=== PATIENT | male | born 1950 | race Caucasian/White ===

== ENCOUNTER 2016-08-05 17:17 | Emergency (ER) | payer OTHER ==
[2016-08-05 17:24] VITALS: BP 164/85; BMI 34.2
--- NOTE | 2016-08-05 17:26 | DR.GENAD ---
HPI - PCP Primary Care Physician: [email or web address] - Complaint/Symptoms Chief Complaint:: abdomen pain for the last two months has got worse since tuesday pt cant have a bowle movement - Nurses notes reviewed Nurses Notes Review: Yes - Source History Provided: Patient - Mode of Arrival Mode of Arrival: Ambulatory - Timing Onset of Chief Complaint: 07/08/16 Came on: Gradually - Duration Duration: Intermittent How lon Duration: Days - Location Location: ABDOMIN - Severity Severity: Moderate - Modifying Factors Worsens:: LAST 3 DAYS - Associated Signs and Symptoms Associated Signs and Symptoms: RUQ PAIN - Other History Other History: HX COLON CANCER PMH - PMH Past Medical History: Yes Past Medical History: Gout Past Surgical History: Yes Past Surgical History Comment: colon cancer 2000 tumor removed, ball surgery, eye - Family History History of Family Medical Conditions: Yes Family Medical History: Cancer, Hypertension - Social History Does patient currently use any type of tobacco product: Yes Have you used tobacco products in the last 12 months: Yes Type of Tobacco Use: Cigars How many years tobacco product used: 1 Does any household member use tobacco: No Alcohol Use: Occasionally Do you use any recreational Drugs:: No Lives With: Spouse Lives Where: Home - infectious screening In the last 2 months have you had wt loss of >10#?: NO Have you had fever, night sweats or hemotysis?: No Have you traveled outside the country in the last 6 months?: No Isolation: Standard ROS - Review of Systems Constitutional: No Symptoms Reported Eyes: No Symptoms Reported ENTM: No Symptoms Reported Respiratoy: No Symptoms Reported Cardiovascular: No Symptoms Reported Gastrointestinal/Abdominal: Abdominal Pain, Constipation Genitourinary: No Symptoms Reported Neurological: No Symptoms Reported Musculoskeletal: No Symptoms Reported Integumentary: No Symptoms Reported Hematologic/Lymphatic: No Symptoms Reported Endocrine: No Symptoms Reported Psychiatric: No Symptoms Reported PE - Vital Signs Vitals: Temperature 98.8 F Pulse Rate 69 Respiratory Rate 18 Blood Pressure 164/85 O2 Sat by Pulse Oximetry 100 - General Limitations: No Limitations General Appearance: Alert - Head Head Exam: Normal Inspection - Eyes Eye exam: PERRL, EOMI. negative: Scleral Icterus, Conjunctival Injection - ENT ENT Exam: Normal Exam External Ear Exam: Normal External Inspection - Neck Neck Exam: Normal Inspection, Full ROM, Trachea Midline - Respiratory Respiratory Exam: negative: Accessory Muscle Use, Respiratory Distress - Cardiovascular Cardiovascular Exam: Regular Rate - Abdominal Exam Abdominal Exam: Normal Inspection, Soft, Tenderness (MILD ruq). negative: Normal Bowel Sounds (DECREASED BOWEL SOUNDS), Distention, Guarding Abdominal Tenderness: RUQ - Extremities Extremities Exam: Normal Inspection, Full ROM - Neurologic Neurological Exam: Alert, Oriented X3, CN II-XII Intact - Psychiatric Psychiatric Exam: Normal Affect - Skin Skin Exam: Intact, Normal Color Course - Consultation Called: 18:00 Call Returned: 18:08 Consultation Comments: CASE DISCUSSED WITH dr. Nunez ADMIT IVF, POTASSIUM - Diagnosis Discharge Problem: Hypokalemia due to loss of potassium Diarrhea Qualifiers: Diarrhea type: unspecified type Qualified Code(s): R19.7 - Diarrhea, unspecified - Discharge Plan Condition: Stable - Follow ups/Referrals Follow ups/Referrals: Ubaldo Castillo [Primary Care Provider] - 3 days - Instructions
[2016-08-05 18:26] LABS: BILIRUBIN,URINE NEGATIVE (NEGATIVE); BLOOD/HEMOGLOBIN,URINE NEGATIVE (NEGATIVE); GLUCOSE, URINE NEGATIVE (NEGATIVE); KETONES,URINE NEGATIVE (NEGATIVE); LEUKOCYTE ESTERASE ,URINE NEGATIVE (NEGATIVE); NITRITES,URINE NEGATIVE (NEGATIVE); PROTEIN,URINE NEGATIVE (NEGATIVE); UROBILINOGEN,URINE NORMAL (NORMAL)
[2016-08-05 18:28] LABS: BASOPHILS % (AUTO) 0.3 % (0.2-1.0); EOSINOPHILS # (AUTO) 0.1 x10^3/uL (0.0-0.2); EOSINOPHILS % (AUTO) 0.9 % (0.9-2.9); HEMATOCRIT 45.6 % (42.0-54.0); HEMOGLOBIN 15.6 g/dL (13.5-18.0); LYMPHOCYTES # (AUTO) 3.8 X10^3/uL (1.3-2.9); LYMPHOCYTES % (AUTO) 30.9 % (21.0-51.0); MEAN CORPUSCULAR HEMOGLOBIN 32.1 pg (27.0-34.0); MEAN CORPUSCULAR HGB CONC 34.2 g/dL (33.0-35.0); MEAN CORPUSCULAR VOLUME 93.8 fL (80.0-100.0); MONOCYTES # (AUTO) 0.9 x10^3/uL (0.3-0.8); MONOCYTES % (AUTO) 6.9 % (0.0-13.0); NEUTROPHILS # (AUTO) 7.6 x10^3/uL (2.2-4.8); PLATELET COUNT 151 X10^3/uL (150.0-450.0); RED BLOOD COUNT 4.86 X10^6/uL (4.7-6.0); RED CELL DISTRIBUTION WIDTH 13.4 % (11.6-16.5); WHITE BLOOD COUNT 12.5 X10^3/uL (3.6-10.0)
[2016-08-05 18:34] LABS: APPEARANCE,URINE CLEAR (CLEAR); BACTERIA,URINE NEGATIVE /HPF (NEGATIVE); COLOR,URINE YELLOW (YELLOW); RBC,URINE NEGATIVE /HPF (NEGATIVE); SQUAMOUS EPITHELIAL CELL,UR NEGATIVE /HPF (NEGATIVE)
[2016-08-05 18:36] LABS: ALANINE AMINOTRANSFERASE 34 Units/L (12-78); ALBUMIN 3.7 g/dL (3.4-5.0); ALKALINE PHOSPHATASE 88 Units/L (46-116); AMYLASE 41 Units/L (25-115); ASPARTATE AMINO TRANSFERASE 19 Units/L (15-37); BLOOD UREA NITROGEN 15 mg/dL (7-18); CARBON DIOXIDE 31.1 mmol/L (21-32); CHLORIDE 105 mmol/L (98-107); CREATININE 1.05 mg/dL (0.70-1.30); GLUCOSE 105 mg/dL (65-99); LIPASE 175 Units/L (73-393); SODIUM 144 mmol/L (136-145); TOTAL PROTEIN 7.6 g/dL (6.4-8.2); eGFR BLACK RACES > 60 (>60); eGFR NON BLACK RACES > 60 (>60)
[2016-08-05] MEDS ORDERED: NS 100 ML IV 100 ML IV ONE (18:43)
--- NOTE | 2016-08-05 19:52 | CT ---
HISTORY: Right upper quadrant pain and constipation for 3 days Study: CT abdomen and pelvis with IV contrast Comparison: None Technique: Multiple axial images of the abdomen and pelvis were obtained from the lung bases to the pubic symph ysis with the administration of IV contrast. Sagittal and coronal reformations were provided. Findings: The visualized portions of the lung bases are unremarkable. The liver, spleen, pancreas, kidneys, a nd adrenal glands are unremarkable in their CT appearance. There are numerous cholesterol gallstones in a nondistended gallbladder. There is no biliary dilatation.. No significant mesenteric lymphade nopathy or stranding can be observed. No free fluid or free air is seen within the abdomen. The ap pendix is normal. No bowel wall thickening or bowel dilatation is present. There are sutures for an astomosis in the proximal sigmoid colon.. The urinary bladder is grossly unremarkable. The bony str uctures are grossly intact. IMPRESSION: 1. Cholelithiasis Reported By:
[2016-08-05] MEDS ORDERED: ZOFRAN TAB 4 MG PO ONE (20:07)
[2016-08-05] MEDS ORDERED: NORCO 5/325 MG TAB PO ONE (20:07)
[2016-08-05] MEDS ORDERED: NORCO 5/325 MG TAB ONE (20:14)
[2016-08-05] MEDS ORDERED: ZOFRAN TAB 4 MG ONE (20:14)
== END 2016-08-05 20:21 | disposition home or self-care (01) ==
LOC: ER 17:27
DX: E87.6 Hypokalemia (principal); R19.7 Diarrhea, unspecified; K80.80 Other cholelithiasis without obstruction
CPT/HCPCS: 36415; 74177; 80053; 81001; 82150; 83690; 85025; 96365; 99283; A4216; A4222; S0181

== ENCOUNTER 2016-08-10 09:08 | Observation (INO) | payer OTHER ==
[2016-08-10] MEDS ORDERED: NS 1000 ML 1,000 ML IV ONE (09:50)
[2016-08-10] MEDS: PROTONIX INJ 40 MG VIAL IVP SCH (10:13)
[2016-08-10] MEDS: LEVAQUIN PREMIX IV 750 MG 750 MG/150 ML BAG IV SCH (10:14)
[2016-08-10] MEDS: PEPCID 20 MG IV PREMIX* 20 MG/50 ML BAG IV SCH ×2 (10:14→20:29)
[2016-08-10 10:31] LABS: BASOPHILS # (AUTO) 0.1 X10^3/uL (0.0-0.1); BASOPHILS % (AUTO) 0.9 % (0.2-1.0); EOSINOPHILS # (AUTO) 0.2 x10^3/uL (0.0-0.2); EOSINOPHILS % (AUTO) 2.3 % (0.9-2.9); HEMATOCRIT 45.2 % (42.0-54.0); HEMOGLOBIN 15.6 g/dL (13.5-18.0); LYMPHOCYTES # (AUTO) 1.5 X10^3/uL (1.3-2.9); LYMPHOCYTES % (AUTO) 17.1 % (21.0-51.0); MEAN CORPUSCULAR HEMOGLOBIN 32.4 pg (27.0-34.0); MEAN CORPUSCULAR HGB CONC 34.5 g/dL (33.0-35.0); MEAN CORPUSCULAR VOLUME 93.9 fL (80.0-100.0); MEAN PLATELET VOLUME 9.2 fL (7.4-11.0); MONOCYTES # (AUTO) 1.2 x10^3/uL (0.3-0.8); MONOCYTES % (AUTO) 13.7 % (0.0-13.0); NEUTROPHILS # (AUTO) 5.8 x10^3/uL (2.2-4.8); PLATELET COUNT 111 X10^3/uL (150.0-450.0); RED BLOOD COUNT 4.81 X10^6/uL (4.7-6.0); RED CELL DISTRIBUTION WIDTH 13.4 % (11.6-16.5); WHITE BLOOD COUNT 8.8 X10^3/uL (3.6-10.0)
[2016-08-10 10:55] LABS: BILIRUBIN,URINE NEGATIVE (NEGATIVE); BLOOD/HEMOGLOBIN,URINE 2+ (NEGATIVE); GLUCOSE, URINE NEGATIVE (NEGATIVE); KETONES,URINE NEGATIVE (NEGATIVE); LEUKOCYTE ESTERASE ,URINE NEGATIVE (NEGATIVE); NITRITES,URINE NEGATIVE (NEGATIVE); PROTEIN,URINE NEGATIVE (NEGATIVE); UROBILINOGEN,URINE NORMAL (NORMAL)
[2016-08-10 11:05] VITALS: BMI 34.5
[2016-08-10 11:15] LABS: APPEARANCE,URINE CLEAR (CLEAR); BACTERIA,URINE NEGATIVE /HPF (NEGATIVE); COLOR,URINE YELLOW (YELLOW); RBC,URINE 0-5 /HPF (NEGATIVE); SQUAMOUS EPITHELIAL CELL,UR RARE /HPF (NEGATIVE)
[2016-08-10 11:19] LABS: ALANINE AMINOTRANSFERASE 27 Units/L (12-78); ALBUMIN 3.5 g/dL (3.4-5.0); ALKALINE PHOSPHATASE 79 Units/L (46-116); ASPARTATE AMINO TRANSFERASE 22 Units/L (15-37); BLOOD UREA NITROGEN 13 mg/dL (7-18); CALCIUM 8.9 mg/dL (8.5-10.1); CARBON DIOXIDE 30.9 mmol/L (21-32); CHLORIDE 104 mmol/L (98-107); COR NA(FOR HYPERGLY) 141 mmol/L (136-145); CREATININE 1.22 mg/dL (0.70-1.30); GLUCOSE 113 mg/dL (65-99); SODIUM 141 mmol/L (136-145); TOTAL PROTEIN 7.6 g/dL (6.4-8.2); eGFR BLACK RACES > 60 (>60); eGFR NON BLACK RACES > 60 (>60)
[2016-08-10] MEDS: NS 1000 ML 1,000 ML IV SCH ×3 (13:51→22:26)
--- NOTE | 2016-08-10 16:44 | US ---
Limited abdominal ultrasound Indication: Abdominal pain, cholelithiasis Comparison: CT abdomen and pelvis 08/05/2016 Findings: There are technical limitations of the study related to superimposed patient bowel gas. Th ere are multiple layering gallstones within the gallbladder. No significant gallbladder distention, wall thickening, or pericholecystic fluid is identified. The visualized liver, right kidney, and welch creas were unremarkable. Impression: Limited study as above, demonstrating cholelithiasis, without evidence for acute cholecystitis. Reported By:
[2016-08-10] MEDS ORDERED: MORPHINE SULFATE INJ 2 MG IVP PRN (17:32)
[2016-08-10] MEDS ORDERED: NS 100 ML IV 100 ML IV ONE (18:51)
--- NOTE | 2016-08-10 20:22 | CT ---
CT OF THE ABDOMEN AND PELVIS WITH CONTRAST HISTORY: Abdominal pain. History of gallstones. Comparison: 08/05/2016 Technique: Multiple axial images of the abdomen and pelvis were obtained from the lung bases to the pubic symph ysis follow the administration of IV contrast as well as oral contrast. Dose reduction techniques i ncluding Automated Exposure Control (AEC) and adjustment of mA and kV were utlized. Findings: The heart is normal in size. There is no pericardial effusion. Lung bases are clear without focal co nsolidation, pleural effusion or pneumothorax. Liver and spleen are normal in size, enhancement characteristics and contour. No focal lesions. The portal vein is patent. No ductal dilitation. Multiple gallstones present. No pericholecystic fluid o r gallbladder wall thickening.. The pancreas is unremarkable. Adrenal glands are normal. Kidneys enh ance symmetrically without hydronephrosis or nephrolithiasis. No bowel obstruction or inflammation. Normal appendix. No abnormal appearing mesenteric or retroperi toneal lymph nodes. No free fluid or fluid collections. The bladder is normal in appearance. Prostate is normal in size.. No free fluid or abnormal pelvic l ymph nodes. No aggressive osseous lesions. IMPRESSION: 1. No source of patient's abdominal pain is identified. 2. Cholelithiasis without other signs of cholecystitis. Reported By:
[2016-08-10] MEDS ORDERED: AMBIEN PO PRN (21:12)
[2016-08-11] MEDS: NS 1000 ML 1,000 ML IV SCH ×3 (06:10→19:30)
[2016-08-11 06:18] LABS: ALANINE AMINOTRANSFERASE 24 Units/L (12-78); ALBUMIN 3.2 g/dL (3.4-5.0); ALKALINE PHOSPHATASE 73 Units/L (46-116); ASPARTATE AMINO TRANSFERASE 20 Units/L (15-37); BLOOD UREA NITROGEN 10 mg/dL (7-18); CALCIUM 8.4 mg/dL (8.5-10.1); CARBON DIOXIDE 27.7 mmol/L (21-32); CHLORIDE 104 mmol/L (98-107); GLUCOSE 106 mg/dL (65-99); SODIUM 141 mmol/L (136-145); eGFR BLACK RACES > 60 (>60); eGFR NON BLACK RACES > 60 (>60)
[2016-08-11 06:36] LABS: BASOPHILS # (AUTO) 0.1 X10^3/uL (0.0-0.1); BASOPHILS % (AUTO) 0.9 % (0.2-1.0); EOSINOPHILS # (AUTO) 0.1 x10^3/uL (0.0-0.2); EOSINOPHILS % (AUTO) 1.5 % (0.9-2.9); HEMATOCRIT 42.5 % (42.0-54.0); HEMOGLOBIN 14.7 g/dL (13.5-18.0); LYMPHOCYTES # (AUTO) 1.6 X10^3/uL (1.3-2.9); LYMPHOCYTES % (AUTO) 24.3 % (21.0-51.0); MEAN CORPUSCULAR HEMOGLOBIN 32.2 pg (27.0-34.0); MEAN CORPUSCULAR HGB CONC 34.5 g/dL (33.0-35.0); MEAN CORPUSCULAR VOLUME 93.3 fL (80.0-100.0); MEAN PLATELET VOLUME 9.6 fL (7.4-11.0); MONOCYTES # (AUTO) 1.1 x10^3/uL (0.3-0.8); MONOCYTES % (AUTO) 17.3 % (0.0-13.0); NEUTROPHILS # (AUTO) 3.6 x10^3/uL (2.2-4.8); PLATELET COUNT 110 X10^3/uL (150.0-450.0); RED BLOOD COUNT 4.56 X10^6/uL (4.7-6.0); RED CELL DISTRIBUTION WIDTH 13.2 % (11.6-16.5); WHITE BLOOD COUNT 6.4 X10^3/uL (3.6-10.0)
[2016-08-11] MEDS ORDERED: ZOFRAN INJ 4 MG VIAL IVP PRN ×2 (10:19→16:31)
--- NOTE | 2016-08-11 10:19 | DR.H&P ---
H&P - History & Physical for Day of: H&P Date: 08/10/16 - Chief Complaint Chief Complaint: ABDOMINAL PAIN, NAUSEA AND VOMITING - Allergies Allergies/Adverse Reactions: Allergies Allergy/AdvReac Type Severity Reaction Status Date / Time No Known Drug Allergy Allergy Verified 08/10/16 08:34 - History of Present Illness History of Present Illness: THIS IS A 66 YEAR OLD MALE, WHO IS A PATIENT OF OURS. HE IS DIRECT ADMITTED TODAY FOR SEVERE ABDOMINAL PAIN ALONG WITH NAUSEA AND VOMITING. PATIENT WAS SEEN IN THE EMERGENCY ROOM ON 08/05/16 FOR SIMILAR COMPLAINTS, ALTHOUGH; TODAY PAIN IS MUCH WORSE. PATIENT REPORTS PAIN IS SEVERE AFTER MEALS AND HE STATES HE HASN'T EATEN ANYTHING IN 4 DAYS. HE ALSO REPORTS NO BOWEL MOVEMENT IN 4 DAYS. HE IS NOTED WITH SEVERE ABDOMINAL TENDERNESS TO RIGHT QUADRANT. A CT OF ABD/PELVIS WAS OBTAINED WHILE IN ER AND REPORTED CHOLELITHIASIS. PATIENT RATES ABDOMINAL PAIN A 6 ON A 1-TO-10 PAIN SCALE. LABS OBTAINED ON ARRIVAL TODAY. CBC WNL EXCEPT: WBC 12.5. CMP WNL EXCEPT: GLUCOSE 105. WE WILL START IV FLUIDS, ANTIEMETICS, IV PAIN MEDICATION, PEPCID, AND PROTONIX. WE WILL OBTAIN A FOLLOW UP CT OF ABD/PELVIS AND OBTAIN A GALL BLADDER US. WE WILL CONTINUE TO MONITOR AND FOLLOW UP IN AM WITH LABS. - Past Medical History Past Medical History: Gout, Hypertension Additional Medical History: Cholelithiasis, Colon Cancer - Past Surgical History Surgical History: Other Additional Surgical History: Anal fissure repair - Family History Family Medical History: Cancer, PA, Hypertension - Social History Does patient currently use any type of tobacco product: Yes (Cigar) Have you used tobacco products in the last 12 months: Yes Type of Tobacco Use: Cigars Does any household member use tobacco: No Alcohol Use: Occasionally Drug Use: None - Medications Home Medications: Atrovent Nasal [place] 0.06% [Ipratropium [place] 42 Mcg/[place]] 1 each ENOSTRIL NEEDED 08/10/16 [History Confirmed 08/10/16] Ciprofloxacin HCl [Cipro 750 mg tab] 1 tab PO DAILY 08/10/16 [History Confirmed 08/10/16] Clonazepam 1 tab PO HS 08/10/16 [History Confirmed 08/10/16] Dicyclomine HCl [BENTYL CAP 10 MG *] 1 cap PO BID 08/10/16 [History Confirmed ] Propranolol HCl 1 tab PO BID 08/10/16 [History Confirmed 08/10/16] - Review of Systems Constitutional: Weakness, Malaise Eyes: No Symptoms Reported. denies: Pain, Vision Change, Conjunctivae Inflammation, Eyelid Inflammation, Redness ENT: No Symptoms Reported. denies: Ear Pain, Ear Discharge, Nose Pain, Nose Discharge, Nose Congestion, Mouth Pain, Mouth Swelling, Throat Pain, Throat Swelling Respiratory: No Symptoms Reported. denies: Cough, Shortness of Breath, Hemoptysis, SOB with Excertion, Pleuritic Pain, Sputum, Wheezing Cardiovascular: No Symptoms Reported. denies: Chest Pain, Palpitations, Paroxysmal Noc. Dyspnea, Edema, Light Headedness Gastrointestinal: Nausea, Vomiting, Abdominal Pain. denies: Diarrhea, Constipation, Melena, Hematochezia Genitourinary: No Symptoms Reported. denies: Dysuria, Frequency, Incontinence, Hematuria, Retention Musculoskeletal: No Symptoms Reported. denies: Shoulder Pain, Arm Pain, Back Pain, Hand Pain, Leg Pain, Foot Pain, Neck Pain Skin: No Symptoms Reported. denies: Rash, Lesions, Jaundice, Bruising, Wound, Ecchymosis Neurological: No Symptoms Reported. denies: Weakness, Numbness, Incoordination , Change in Speech, Confusion, Seizures - Physical Exam Vital Signs: Temperature 97.8 F Pulse Rate [Left Brachial] 66 Respiratory Rate 16 Blood Pressure [Left Arm] 142/79 Blood Pressure 164/85 O2 Sat by Pulse Oximetry 95 Oriented: Normal, Time, Person, Place Eyes: Normal. negative: Blurred Vision, Diplopia, Discharge, Pain, Redness, Photophobia Ear: Normal. negative: Swelling, Ecchymosis, Hemotypanum, Abrasion, Laceration Nose: Normal. negative: Injected, Discharge, Blood Throat: Dry. negative: Tonsillar Hypertrophy, Exudate Respiratory: Clear Throughout Cardiovascular: Normal. negative: Murmur, Edema : Normal. negative: Dysuria, Hematuria, Frequency, Discharge, Testicular Pain Auscultation: Bowel Sounds: Decreased. negative: Bruit Palpation: Normal. negative: Spleen Enlarged, Liver Enlarged, Mass Pulsatile Tenderness: RUQ, RLQ, Severe. negative: Rebound, Guarding, Rigidity Skin: Decreased Turgur. negative: Diaphoresis, Wound, Bruising, Ecchymosis Musculoskeletal: Instability Psychiatric: Normal Mood Description: Calm, Appropriate Affect: Normal Speech Pattern: Clear, Appropriate - Assessment/Plan (1) Abdominal pain Qualifiers: Abdominal location: right upper quadrant Qualified Code(s): R10.11 - Right upper quadrant pain Status: Acute Plan: ADMIT PATIENT, OBTAIN CT OF ABD/PELVIS AND GALL BLADDER US, START IV FLUIDS, ANTIEMETICS, IV MORPHINE, PEPCID, PROTONIX, HOLD NPO. (2) Nausea and vomiting Qualifiers: Vomiting type: cyclical vomiting Vomiting Intractability: non-intractable Qualified Code(s): G43.A0 - Cyclical vomiting, not intractable Status: Acute Plan: ABOVE. (3) Cholelithiasis Qualifiers: Cholelithiasis location: gallbladder Cholecystitis presence: without cholecystitis Cholangitis presence: C Cholecystitis acuity: C Cholangitis acuity: C Biliary obstruction: without biliary obstruction Qualified Code(s) : K80.20 - Calculus of gallbladder without cholecystitis without obstruction Status: Acute Plan: ABOVE. 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
[2016-08-11] MEDS: [UNRECOGNIZED DRUG - OTHER] PO SCH ×2 (10:30→21:15)
--- NOTE | 2016-08-11 10:50 | PCM.PROG ---
Progress Note - Progress Note for Day of Date: 08/11/16 - Subjective Subjective: PATIENT CONTINUES WITH ABDOMINAL PAIN WITH NAUSEA THIS MORNING. HE IS REPORTING ABDOMINAL PAIN IS PRIMARILY LOCATED IN THE RIGHT UPPER QUADRANT. PATIENT IS CURRENTLY NPO FOR HIDASCAN THIS MORNING. PATIENT HAD A GALL BLADDER US YESTERDAY THAT REPORTED GALL STONES. HE ALSO HAD A FOLLOW UP CT OF ABD/ PELVIS THAT SHOWED CHOLELITHIASIS WITHOUT OTHER SIGNS OF CHOLECYSTITIS. CBC WNL EXCEPT: PLT COUNT 110. CMP WNL EXCEPT: GLUCOSE 106, CALCIUM 8.4, ALBUMIN 3.2. EKG: SINUS RHYTHM, RATE 62. WE WILL CONSULT DR. DE LEON FOR A CHOLECYSTECTOMY. PATIENT IS MEDICALLY CLEAR FOR SURGERY. WE WILL HOLD PATIENT NPO AND CONTINUE PAIN MANGEMENT AND CONTINUE IV FLUIDS WITH ANTIEMETICS. - Past Medical Family Social History Past Med/Fam/Surg Hx: No changes since H&P Allergies: Allergies No Known Drug Allergy Allergy (Verified 08/10/16 08:34) - Review of Systems ROS: No change since H&P - Vital Signs and I&O's Vital Signs: Temperature 97.8 F Pulse Rate [Left Brachial] 66 Respiratory Rate 16 Blood Pressure [Left Arm] 142/79 Blood Pressure 164/85 O2 Sat by Pulse Oximetry 95 Intake and Output: Intake & Output 08/08/16 08/09/16 08/10/16 08/11/16 11:59 11:59 11:59 11:59 Intake Total 4124 Balance 4124 - Physical Exam Oriented: Normal, Time, Person, Place Eyes: Normal. negative: Blurred Vision, Diplopia, Discharge, Pain, Redness, Photophobia Ear: Normal. negative: Swelling, Ecchymosis, Hemotypanum, Abrasion, Laceration Nose: Normal. negative: Injected, Discharge, Blood Throat: Dry. negative: Tonsillar Hypertrophy, Exudate Respiratory: Normal Cardiovascular: Normal. negative: Murmur, Edema : Normal. negative: Dysuria, Hematuria, Frequency, Discharge, Testicular Pain Auscultation: Bowel Sounds: Decreased. negative: Bruit Palpation: Normal. negative: Spleen Enlarged, Liver Enlarged, Mass Pulsatile Tenderness: RUQ, Severe. negative: Rebound, Guarding, Rigidity Skin: Decreased Turgur. negative: Diaphoresis, Wound, Bruising, Ecchymosis Musculoskeletal: Instability Psychiatric: Normal Mood Description: Calm, Appropriate Affect: Normal Speech Pattern: Clear, Appropriate - Laboratory and Diagnostics Result Diagrams: 08/11/16 05:51 08/11/16 05:51 Labs: Laboratory WBC 6.4 X10^3/uL (3.6-10.0) 08/11/16 05:51 RBC 4.56 X10^6/uL (4.7-6.0) L 08/11/16 05:51 Hgb 14.7 g/dL (13.5-18.0) 08/11/16 05:51 Hct 42.5 % (42.0-54.0) 08/11/16 05:51 MCV 93.3 fL (80.0-100.0) 08/11/16 05:51 MCH 32.2 pg (27.0-34.0) 08/11/16 05:51 MCHC 34.5 g/dL (33.0-35.0) 08/11/16 05:51 RDW 13.2 % (11.6-16.5) 08/11/16 05:51 Plt Count 110 X10^3/uL (150.0-450.0) L 08/11/16 05:51 MPV 9.6 fL (7.4-11.0) 08/11/16 05:51 Neut % 56.0 % (42.0-75.0) 08/11/16 05:51 Lymph % 24.3 % (21.0-51.0) 08/11/16 05:51 [place] % 17.3 % (0.0-13.0) H 08/11/16 05:51 Eos % 1.5 % (0.9-2.9) 08/11/16 05:51 Baso % 0.9 % (0.2-1.0) 08/11/16 05:51 Neut # 3.6 x10^3/uL (2.2-4.8) 08/11/16 05:51 Lymph # 1.6 X10^3/uL (1.3-2.9) 08/11/16 05:51 [place] # 1.1 x10^3/uL (0.3-0.8) H 08/11/16 05:51 Eos # 0.1 x10^3/uL (0.0-0.2) 08/11/16 05:51 Baso # 0.1 X10^3/uL (0.0-0.1) 08/11/16 05:51 Absolute Nucleated RBC 0.1 /100WBC 08/11/16 05:51 Sodium 141 mmol/L (136-145) 08/11/16 05:51 Corrected Sodium TNP 08/11/16 05:51 Potassium 3.8 mmol/L (3.5-5.1) 08/11/16 05:51 Chloride 104 mmol/L (98-107) 08/11/16 05:51 Carbon Dioxide 27.7 mmol/L (21-32) 08/11/16 05:51 BUN 10 mg/dL (7-18) 08/11/16 05:51 Creatinine 1.10 mg/dL (0.70-1.30) 08/11/16 05:51 Est GFR (MDRD) Af Amer > 60 (>60) 08/11/16 05:51 Est GFR (MDRD) Non-Af > 60 (>60) 08/11/16 05:51 Glucose 106 mg/dL (65-99) H 08/11/16 05:51 Calcium 8.4 mg/dL (8.5-10.1) L 08/11/16 05:51 Corrected Calcium 9.0 mg/dL (8.5-10.1) 08/11/16 05:51 Total Bilirubin 0.70 mg/dL (0.2-1.0) 08/11/16 05:51 AST 20 Units/L (15-37) 08/11/16 05:51 ALT 24 Units/L (12-78) 08/11/16 05:51 Alkaline Phosphatase 73 Units/L (46-116) 08/11/16 05:51 Total Protein 7.0 g/dL (6.4-8.2) 08/11/16 05:51 Albumin 3.2 g/dL (3.4-5.0) L 08/11/16 05:51 Globulin 3.8 g/dL (2.5-4.5) 08/11/16 05:51 Albumin/Globulin Ratio 0.8 Ratio (1.1-2.1) L 08/11/16 05:51 Specimen Type Clean catch urine 08/10/16 10:41 Urine Color Yellow (YELLOW) 08/10/16 10:41 Urine Appearance Clear (CLEAR) 08/10/16 10:41 Urine pH 5.0 (5.0 - 8.0) 08/10/16 10:41 Ur Specific [place] 1.020 (1.000-1.030) 08/10/16 10:41 Urine Protein Negative (NEGATIVE) 08/10/16 10:41 Urine Glucose (UA) Negative (NEGATIVE) 08/10/16 10:41 Urine Ketones Negative (NEGATIVE) 08/10/16 10:41 Urine Occult Blood 2+ (NEGATIVE) 08/10/16 10:41 Urine Nitrite Negative (NEGATIVE) 08/10/16 10:41 Urine Bilirubin Negative (NEGATIVE) 08/10/16 10:41 Urine Urobilinogen Normal (NORMAL) 08/10/16 10:41 Ur Leukocyte Esterase Negative (NEGATIVE) 08/10/16 10:41 Urine RBC 0-5 /HPF (NEGATIVE) 08/10/16 10:41 Urine WBC None seen /HPF (NEGATIVE) 08/10/16 10:41 Ur Squamous Epith Cells Rare /HPF (NEGATIVE) 08/10/16 10:41 Urine Bacteria Negative /HPF (NEGATIVE) 08/10/16 10:41 Ur Culture Indicated? No/not indicated 08/10/16 10:41 - Plan (1) Abdominal pain Status: Acute Qualifiers: Abdominal location: right upper quadrant Qualified Code(s): R10.11 - Right upper quadrant pain Plan: CONSULT DR. DE LEON, HOLD NPO, HIDASCAN TODAY, CONTINUE IV FLUIDS, ANTIEMETICS, IV MORPHINE, PEPCID, PROTONIX. (2) Nausea and vomiting Status: Acute Qualifiers: Vomiting type: cyclical vomiting Vomiting Intractability: non-intractable Qualified Code(s): G43.A0 - Cyclical vomiting, not intractable Plan: ABOVE. (3) Cholelithiasis Status: Acute Qualifiers: Cholelithiasis location: gallbladder Cholecystitis presence: without cholecystitis Cholangitis presence: C Cholecystitis acuity: C Cholangitis acuity: C Biliary obstruction: without biliary obstruction Qualified Code(s) : K80.20 - Calculus of gallbladder without cholecystitis without obstruction Plan: ABOVE. 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
[2016-08-11] MEDS: IPRATROPIUM BROMIDE 42 MCG/SPRAY ENOSTRIL SCH ×2 (11:00→21:15)
--- NOTE | 2016-08-11 12:31 | NM ---
Nuclear medicine HIDA scan without ejection fraction Indication: Abdominal pain Comparison: Ultrasound dated 08/10/2016 Technique: Multiple scintigraphic images of the abdomen were obtained the intravenous administration of 5.5 mCi of technetium labeled Choletec. Findings: Homogeneous uptake of radiotracer is seen throughout the liver. This intrabiliary ductal system is observed normally. The common hepatic and common bile duct grossly appear unremarkable with normal biliary-bowel transit. The gallbladder is observed to fill normally. IMPRESSION: Normal hepatobiliary imaging scan. Reported By:
[2016-08-11] MEDS ORDERED: DYLOJECT INJ ONE (12:35)
[2016-08-11] MEDS: PROTONIX INJ 40 MG VIAL IVP SCH (13:12)
[2016-08-11] MEDS: PEPCID 20 MG IV PREMIX* 20 MG/50 ML BAG IV SCH ×2 (13:12→21:15)
[2016-08-11] MEDS: LEVAQUIN PREMIX IV 750 MG 750 MG/150 ML BAG IV SCH (13:44)
[2016-08-11] MEDS: ZYLOPRIM PO SCH ×2 (14:00→21:16)
[2016-08-11] MEDS: NS 1000 ML 1,000 ML ONE ×2 (14:10→14:25)
[2016-08-11] MEDS ORDERED: MARCAINE 0.25% WITH EPI IJ ONE (14:15)
[2016-08-11] MEDS ORDERED: XYLOCAINE 1 % (PLAIN) ONE (14:15)
[2016-08-11] MEDS ORDERED: FENTANYL INJ 250 mcg ONE (14:20)
[2016-08-11] MEDS ORDERED: NS IRRIGATION 3000 ML 3,000 ML IR ONE (15:08)
[2016-08-11] MEDS ORDERED: NEOSTIGMINE INJ ONE (16:06)
[2016-08-11] MEDS ORDERED: SUPRANE IN ONE (16:06)
[2016-08-11] MEDS ORDERED: VERSED ONE (16:06)
[2016-08-11] MEDS ORDERED: DIPRIVAN VIAL ONE (16:06)
[2016-08-11] MEDS ORDERED: XYLOCAINE 2 % (PLAIN) ONE (16:06)
[2016-08-11] MEDS ORDERED: NORCURON INJ 10 MG VIAL ONE (16:06)
[2016-08-11] MEDS ORDERED: REGLAN INJ 10 MG VIAL ONE (16:06)
[2016-08-11] MEDS ORDERED: ZOFRAN INJ 4 MG VIAL ONE (16:06)
[2016-08-11] MEDS ORDERED: QUELICIN (OR ANECTINE) ONE (16:06)
[2016-08-11] MEDS ORDERED: ROBINUL ONE (16:06)
[2016-08-11] MEDS ORDERED: PHENERGAN INJ 25 MG ONE (16:30)
[2016-08-11] MEDS ORDERED: BENADRYL INJ 50 MG VIAL IVP PRN ×2 (16:31→16:34)
[2016-08-11] MEDS ORDERED: PHENERGAN INJ 25 MG IVP PRN (16:31)
[2016-08-11] MEDS ORDERED: DILAUDID INJ IVP PRN (16:31)
[2016-08-11] MEDS ORDERED: REGLAN INJ 10 MG VIAL IVP PRN (16:31)
[2016-08-11] MEDS ORDERED: TYLENOL 325 MG TAB PO PRN (16:32)
[2016-08-11] MEDS ORDERED: MORPHINE SULFATE INJ 2 MG IVP PRN (16:42)
[2016-08-11] MEDS: KLONOPIN TAB 1 MG PO SCH ×2 (20:48→21:36)
[2016-08-11] MEDS: PERCOCET TAB 5/325 MG PO PRN (21:36)
[2016-08-12] MEDS: NS 1000 ML 1,000 ML IV SCH (02:20)
[2016-08-12] MEDS: ZYLOPRIM PO SCH ×2 (05:11→13:29)
[2016-08-12 06:22] LABS: BASOPHILS # (AUTO) 0.1 X10^3/uL (0.0-0.1); BASOPHILS % (AUTO) 0.7 % (0.2-1.0); EOSINOPHILS % (AUTO) 0.5 % (0.9-2.9); HEMOGLOBIN 13.9 g/dL (13.5-18.0); LYMPHOCYTES # (AUTO) 1.2 X10^3/uL (1.3-2.9); LYMPHOCYTES % (AUTO) 17.4 % (21.0-51.0); MEAN CORPUSCULAR HEMOGLOBIN 32.4 pg (27.0-34.0); MEAN CORPUSCULAR HGB CONC 34.8 g/dL (33.0-35.0); MEAN CORPUSCULAR VOLUME 93.3 fL (80.0-100.0); MEAN PLATELET VOLUME 9.4 fL (7.4-11.0); MONOCYTES # (AUTO) 0.9 x10^3/uL (0.3-0.8); MONOCYTES % (AUTO) 13.3 % (0.0-13.0); NEUTROPHILS # (AUTO) 4.6 x10^3/uL (2.2-4.8); NEUTROPHILS % (AUTO) 68.1 % (42.0-75.0); PLATELET COUNT 100 X10^3/uL (150.0-450.0); RED BLOOD COUNT 4.29 X10^6/uL (4.7-6.0); RED CELL DISTRIBUTION WIDTH 12.9 % (11.6-16.5); WHITE BLOOD COUNT 6.8 X10^3/uL (3.6-10.0)
[2016-08-12 06:39] LABS: ALANINE AMINOTRANSFERASE 47 Units/L (12-78); ALKALINE PHOSPHATASE 71 Units/L (46-116); ASPARTATE AMINO TRANSFERASE 55 Units/L (15-37); BLOOD UREA NITROGEN 10 mg/dL (7-18); CALCIUM 8.2 mg/dL (8.5-10.1); CHLORIDE 105 mmol/L (98-107); CREATININE 1.15 mg/dL (0.70-1.30); GLUCOSE 102 mg/dL (65-99); SODIUM 140 mmol/L (136-145); TOTAL PROTEIN 6.7 g/dL (6.4-8.2); eGFR BLACK RACES > 60 (>60); eGFR NON BLACK RACES > 60 (>60)
[2016-08-12] MEDS: PEPCID 20 MG IV PREMIX* 20 MG/50 ML BAG IV SCH (08:11)
[2016-08-12] MEDS: PROTONIX INJ 40 MG VIAL IVP SCH (08:11)
[2016-08-12] MEDS: LEVAQUIN PREMIX IV 750 MG 750 MG/150 ML BAG IV SCH (08:11)
[2016-08-12] MEDS: [UNRECOGNIZED DRUG - OTHER] PO SCH (08:12)
[2016-08-12] MEDS: IPRATROPIUM BROMIDE 42 MCG/SPRAY ENOSTRIL SCH (08:12)
[2016-08-12] MEDS: PERCOCET TAB 5/325 MG PO PRN (08:28)
[2016-08-12 13:11] VITALS: BP 138/71
== END 2016-08-12 13:43 | disposition home or self-care (01) ==
LOC: MED/SURG 09:08 → OBS 09:26
PROVIDERS: ADMIT Internal Medicine; ATTEND Internal Medicine
PROC: 0FT44ZZ Resection of Gallbladder, Percutaneous Endoscopic Approach (ICD-10-PCS; principal; 2016-08-11 14:30)
DX: R10.84 Generalized abdominal pain (principal); R10.11 Right upper quadrant pain; R11.2 Nausea with vomiting, unspecified; K80.20 Calculus of gallbladder without cholecystitis without obstruction; I10 Essential (primary) hypertension; M1A.09X0 Idiopathic chronic gout, multiple sites, without tophus (tophi)
CPT/HCPCS: 36415; 74177; 76705; 78226; 80053; 81001; 85025; 87040; 88304; 93005; 94760; A4216; A4222; C9113; S0020; S0028; G0378; J0330; J1956; J2001; J2250; J2405; J2550; J2710; J2765; J3010; J3490

== ENCOUNTER 2016-10-28 01:10 | Emergency (ER) | payer OTHER ==
[2016-10-28 01:18] VITALS: BP 151/84; BMI 33.9
--- NOTE | 2016-10-28 01:52 | DR.GENAD ---
HPI - PCP Primary Care PhysicianDickson Castillo - Complaint/Symptoms Chief Complaint:: "About a week ago I was getting into a car and I felt something pop. I went to the doctor and he gave me a shot and some steroid. It has seemed to have gotten worse now though. I have nerve pain going down my leg all the way to my foot." - Source History Provided: Patient - Mode of Arrival Mode of Arrival: Ambulatory - Timing Onset of Chief Complaint: 10/20/16 PMH - PMH Past Medical History: Yes Past Medical History: Gout, Hypertension Past Surgical History: Yes Surgical History: Cholecystectomy, Other Past Surgical History Comment: Colon cancer - Family History History of Family Medical Conditions: Yes Family Medical History: Cancer, [place], Hypertension - Social History Does patient currently use any type of tobacco product: No Type of Tobacco Use: None Does any household member use tobacco: No Alcohol Use: Rarely Do you use any recreational Drugs:: No Lives With: Spouse Lives Where: Home - infectious screening In the last 2 months have you had wt loss of >10#?: NO Have you had fever, night sweats or hemotysis?: No Have you traveled outside the country in the last 6 months?: No Isolation: Standard ROS - Review of Systems Eyes: No Symptoms Reported ENTM: No Symptoms Reported Respiratoy: No Symptoms Reported Cardiovascular: No Symptoms Reported Gastrointestinal/Abdominal: No Symptoms Reported Genitourinary: No Symptoms Reported Neurological: No Symptoms Reported Musculoskeletal: No Symptoms Reported Integumentary: No Symptoms Reported Hematologic/Lymphatic: No Symptoms Reported Endocrine: No Symptoms Reported Psychiatric: No Symptoms Reported All Other Systems: Reviewed and Negative PE - Vital Signs Vitals: Temperature 97.6 F Pulse Rate 51 Respiratory Rate 20 Blood Pressure [Left Arm] 138/71 Blood Pressure 151/84 O2 Sat by Pulse Oximetry 97 - General Limitations: No Limitations General Appearance: Alert, In No Apparent Distress - Head Head Exam: Normal Inspection, Atraumatic - Eyes Eye exam: Normal Appearance, PERRL, EOMI - ENT ENT Exam: Normal Exam External Ear Exam: Normal External Inspection TM/Canal Exam: Bilateral Normal Nose Exam: Normal Nose Exam Mouth Exam: Normal Inspection Throat Exam: Normal Inspection - Neck Neck Exam: Normal Inspection - Chest Chest Inspection: Normal Inspection - Respiratory Respiratory Exam: Normal Lung Sounds Bilat Respiratory Exam: Bilateral Clear to Auscultation - Cardiovascular Cardiovascular Exam: Regular Rate, Normal Rhythm - Abdominal Exam Abdominal Exam: Normal Inspection, Normal Bowel Sounds Abdominal Tenderness: negative: RUQ, RLQ, LUQ, LLQ, Epigastrium, Suprapubic, Diffuse, Mild, Moderate, Severe, Other - Back Back Exam: Normal Inspection, Tenderness, (R) CVA Tenderness, (R) Sciatic Notch Tenderness - Neurologic Neurological Exam: Alert, Oriented X3, CN II-XII Intact Course - Reevaluation 1st: Improved ROR - Labs Reviewed Result Diagrams: 10/28/16 02:00 10/28/16 02:00 Laboratory: WBC 10.3 X10^3/uL (3.6-10.0) H 10/28/16 02:00 RBC 4.73 X10^6/uL (4.7-6.0) 10/28/16 02:00 Hgb 15.4 g/dL (13.5-18.0) 10/28/16 02:00 Hct 44.0 % (42.0-54.0) 10/28/16 02:00 MCV 93.0 fL (80.0-100.0) 10/28/16 02:00 MCH 32.6 pg (27.0-34.0) 10/28/16 02:00 MCHC 35.0 g/dL (33.0-35.0) 10/28/16 02:00 RDW 14.0 % (11.6-16.5) 10/28/16 02:00 Plt Count 118 X10^3/uL (150.0-450.0) L 10/28/16 02:00 MPV 9.5 fL (7.4-11.0) 10/28/16 02:00 Neut % 60.0 % (42.0-75.0) 10/28/16 02:00 Lymph % 31.8 % (21.0-51.0) 10/28/16 02:00 [place] % 7.1 % (0.0-13.0) 10/28/16 02:00 Eos % 0.3 % (0.9-2.9) L 10/28/16 02:00 Baso % 0.8 % (0.2-1.0) 10/28/16 02:00 Neut # 6.2 x10^3/uL (2.2-4.8) H 10/28/16 02:00 Lymph # 3.3 X10^3/uL (1.3-2.9) H 10/28/16 02:00 [place] # 0.7 x10^3/uL (0.3-0.8) 10/28/16 02:00 Eos # 0.0 x10^3/uL (0.0-0.2) 10/28/16 02:00 Baso # 0.1 X10^3/uL (0.0-0.1) 10/28/16 02:00 Absolute Nucleated RBC 0.0 /100WBC 10/28/16 02:00 Sodium 140 mmol/L (136-145) 10/28/16 02:00 Corrected Sodium TNP 10/28/16 02:00 Potassium 3.5 mmol/L (3.5-5.1) 10/28/16 02:00 Chloride 103 mmol/L (98-107) 10/28/16 02:00 Carbon Dioxide 30.6 mmol/L (21-32) 10/28/16 02:00 BUN 22 mg/dL (7-18) H 10/28/16 02:00 Creatinine 0.96 mg/dL (0.70-1.30) 10/28/16 02:00 Est GFR (MDRD) Af Amer > 60 (>60) 10/28/16 02:00 Est GFR (MDRD) Non-Af > 60 (>60) 10/28/16 02:00 Glucose 96 mg/dL (65-99) 10/28/16 02:00 Calcium 8.1 mg/dL (8.5-10.1) L 10/28/16 02:00 Corrected Calcium 8.7 mg/dL (8.5-10.1) 10/28/16 02:00 Total Bilirubin 0.60 mg/dL (0.2-1.0) 10/28/16 02:00 AST 19 Units/L (15-37) 10/28/16 02:00 ALT 40 Units/L (12-78) 10/28/16 02:00 Alkaline Phosphatase 71 Units/L (46-116) 10/28/16 02:00 C-Reactive Protein 0.90 mg/L (0-3.0) 10/28/16 02:00 Total Protein 6.5 g/dL (6.4-8.2) 10/28/16 02:00 Albumin 3.2 g/dL (3.4-5.0) L 10/28/16 02:00 Globulin 3.3 g/dL (2.5-4.5) 10/28/16 02:00 Albumin/Globulin Ratio 1.0 Ratio (1.1-2.1) L 10/28/16 02:00 - XRAY XRAY Interpreted by: Radiologist (CT Lumbar spine: Aligment of the lujgbar spine is maintained. No evidence for acute cortical disruption or subluxation can be seen. The posterior elements appear unremarkable. The prevwertebral soft tissues are normal in their appearance. The surrounding paraspinous soft tissues are unremarkable. The mild spondylosis and broad-based disc bulge at L5 -S1 causes mild moderate right and left-sided neural formainal narrowing. There is also at least mild spinal canal stenosis. Broad based disc bulge at L4 -5 also causing mild spinal canal stenosis. Impression: No evidence for traumatic injury of the lumbar spine. 2.Discogenic degenerative change at L4-5 and L5-S1 causing spinal canal and neural foraminal stenosis as described above. Consider correlation with nonemergent lumbar spine MRI for further characterization of spinal canal and neural foraminal stenosis.) - Diagnosis Discharge Problem: L4-L5 disc bulge, Disc gene L5-S1 - Discharge Plan Condition: Stable - Follow ups/Referrals Follow ups/Referrals: Ubaldo Castillo [Primary Care Provider] - 3 days - Instructions
[2016-10-28] MEDS ORDERED: MORPHINE SULFATE INJ 4 MG IVP ONE ×2 (01:59→03:16)
[2016-10-28] MEDS ORDERED: MORPHINE SULFATE INJ 4 MG ONE ×2 (01:59→03:17)
[2016-10-28 02:08] LABS: BASOPHILS # (AUTO) 0.1 X10^3/uL (0.0-0.1); BASOPHILS % (AUTO) 0.8 % (0.2-1.0); EOSINOPHILS % (AUTO) 0.3 % (0.9-2.9); HEMOGLOBIN 15.4 g/dL (13.5-18.0); LYMPHOCYTES # (AUTO) 3.3 X10^3/uL (1.3-2.9); LYMPHOCYTES % (AUTO) 31.8 % (21.0-51.0); MEAN CORPUSCULAR HEMOGLOBIN 32.6 pg (27.0-34.0); MEAN PLATELET VOLUME 9.5 fL (7.4-11.0); MONOCYTES # (AUTO) 0.7 x10^3/uL (0.3-0.8); MONOCYTES % (AUTO) 7.1 % (0.0-13.0); NEUTROPHILS # (AUTO) 6.2 x10^3/uL (2.2-4.8); PLATELET COUNT 118 X10^3/uL (150.0-450.0); RED BLOOD COUNT 4.73 X10^6/uL (4.7-6.0); WHITE BLOOD COUNT 10.3 X10^3/uL (3.6-10.0)
[2016-10-28 02:20] LABS: ALANINE AMINOTRANSFERASE 40 Units/L (12-78); ALBUMIN 3.2 g/dL (3.4-5.0); ALKALINE PHOSPHATASE 71 Units/L (46-116); ASPARTATE AMINO TRANSFERASE 19 Units/L (15-37); BLOOD UREA NITROGEN 22 mg/dL (7-18); CALCIUM 8.1 mg/dL (8.5-10.1); CARBON DIOXIDE 30.6 mmol/L (21-32); CHLORIDE 103 mmol/L (98-107); COR CA(FOR HYPOALB) 8.7 mg/dL (8.5-10.1); CREATININE 0.96 mg/dL (0.70-1.30); GLUCOSE 96 mg/dL (65-99); SODIUM 140 mmol/L (136-145); TOTAL PROTEIN 6.5 g/dL (6.4-8.2); eGFR BLACK RACES > 60 (>60); eGFR NON BLACK RACES > 60 (>60)
--- NOTE | 2016-10-28 03:40 | CT ---
CT lumbar spine without contrast Indication: Lower back pain Comparison: None available Technique: Multiple axial images of the lumbar spine were obtained from the upper abdomen to the pel vis without administration of IV contrast. Sagittal and coronal reformats were performed and review ed. Radiation dose reduction techniques were performed utilizing adjustment for MA/kVP based on patient body size. Findings: Alignment of the lumbar spine is maintained. No evidence for acute cortical disruption or subluxati on can be seen. The posterior elements appear unremarkable. The prevertebral soft tissues are norm al in their appearance. In addition, the surrounding paraspinous soft tissues are unremarkable. The mild spondylosis and broad-based disc bulge at L5-S1 causes mild moderate right and left-sided n eural foraminal narrowing. There is also at least mild spinal canal stenosis. Broad-based disc bulge at L4-5 also causing mild spinal canal stenosis. IMPRESSION: 1.No evidence for traumatic injury of the lumbar spine. 2.Discogenic degenerative change at L4-5 and L5-S1 causing spinal canal and neural foraminal stenosi s as described above. Consider correlation with nonemergent lumbar spine MRI for further characteriz ation of spinal canal and neural foraminal stenosis. Reported By:
--- NOTE | 2016-10-28 03:42 | CT ---
CT right hip without contrast Indication: Right hip pain technique: 2 mm axial images of the right hip with coronal sagittal refor matted images provided. No IV contrast was administered. Findings: There is moderate degenerative change of the right femoral acetabular joint with hypertrop hic new bone formation and subcortical cyst formation within the anterior superior acetabulum. Colla r osteophytes are no within the femoral head/neck junction. There is increased convexity of the ante rior femoral head/neck junction likely representing a CAM type KIRILL. No acute fracture within the rig ht hip. Obturator ring is intact. No localizing soft tissue swelling. No soft tissue abnormality or adenopathy identified. Impression: Moderate osteoarthrosis of the right hip with CT findings suggesting CAM type KIRILL. No ac pamela fracture or dislocation within the right hip. Reported By:
== END 2016-10-28 04:37 | disposition home or self-care (01) ==
LOC: ER 01:10
DX: M51.06 Intervertebral disc disorders with myelopathy, lumbar region (principal); M51.27 Other intervertebral disc displacement, lumbosacral region; M16.11 Unilateral primary osteoarthritis, right hip
CPT/HCPCS: 36415; 72132; 73700; 80053; 85025; 86140; 96365; 96374; 96375; 99283; A4222; J2270

== ENCOUNTER → 2017-07-08 | Outpatient (CLI) | payer OTHER ==
--- NOTE | 2017-07-11 08:52 | MRI ---
HISTORY: RIGHT KNEE PAIN. EXAM: NON CONTRAST MRI EXAM OF THE RIGHT KNEE. TECHNIQUE: Multisequence and multiplanar T1 and T2 weighted sequences of the right knee were obtained without the administration of IV paramagnetic contrast at 1.5 Ping. COMPARISON: None available. FINDINGS: There is low-grade patellar facet chondromalacia. There is grade 2 chondromalacia seen in the weight- bearing sector of the lateral knee compartment anterior femoral trochlea. There is a chronic strain o f the otherwise intact ACL. The PCL is intact. There is a grade 1 strain of the MCL. There is a 12 mm , oblique tear of the posterior horn of the medial meniscus with adjacent edema. The lateral meniscus is unremarkable in appearance. No posterior-lateral corner injury is seen. There is distal quadricep s peritendinitis. There is proximal patellar tendinosis. Prepatellar edema/bursitis is also seen. The re is evidence for medial joint line semimembranosus and pes anserine bursitis and edema. No acute fr acture or pathologic bone marrow edema is observed. No other knee joint injuries or musculoskeletal a bnormalities are identified. IMPRESSION: Oblique 12 mm undersurface tear of the posterior horn, medial meniscus. Low grade strain(s) of the MCL and ACL without tears of these structures. Findings of semimembranosus and pes anserine bursitis, medial joint line. Grade 2 chondromalacia within the lateral knee compartment and anterior femoral trochlea. Low-grade p atellar facet chondromalacia. Prepatellar bursitis seen. Distal quadriceps peritendinitis and proximal patellar tendinosis without tears. Reported By:
== END | disposition home or self-care (01) ==
LOC: RAD 13:48
PROVIDERS: ATTEND Internal Medicine
DX: M25.561 Pain in right knee (principal); S83.241A Other tear of medial meniscus, current injury, right knee, initial encounter; X58.XXXA Exposure to other specified factors, initial encounter
CPT/HCPCS: 73721